=== PATIENT | female | born 1985 | race Caucasian/White ===

== ENCOUNTER 2023-08-10 06:01 | Emergency (ER) | payer BC, OTHER ==
[2023-08-10] MEDS ORDERED: Lorazepam 1 MG TAB ONE (06:19)
== END 2023-08-10 06:41 | disposition home or self-care (01) ==
LOC: CSHERS 06:01
DX: F41.0 Panic disorder [episodic paroxysmal anxiety] (principal)
CPT/HCPCS: 99283